=== PATIENT | female | born 1990 | race Caucasian/White ===

== ENCOUNTER 2021-04-04 13:49 | Emergency (ER) | payer BC ==
[~2021-04-04] VITALS: Ht 170.2 cm; Wt 94.3 kg
[2021-04-04] MEDS ORDERED: NACL 0.9% 1,000 ML IV ONE ×2 (14:00→14:45)
[2021-04-04 14:02] VITALS: BP_SYST 141
--- NOTE | 2021-04-04 14:02 | NUR ---
Pt came to ER with Fever for multiple days presents with temperature 100.4 no pain. Pt resting in gurney, tachycardic, awaiting
--- NOTE | 2021-04-04 14:02 | NUR ---
Patient to ER bed 8 to gown for evaluation. Side rails up.
--- NOTE | 2021-04-04 14:15 | NUR ---
SRINIVAS Rey at bedside examining patient.
[2021-04-04] MEDS ORDERED: cefTRIAXone 1 GM in D5W 50 ML IV ONE (14:30)
[2021-04-04 14:33] LABS: BILIRUBIN,URINE 1+ (NEGATIVE); BLOOD, URINE 2+ (NEGATIVE); CLARITY/URINE TURBID (CLEAR); COLOR,URINE YELLOW (YELLOW); GLUCOSE,URINE NEGATIVE (NEGATIVE); KETONES,URINE 1+ (NEGATIVE); LEUKOCYTE ESTERASE ,URINE 2+ (NEGATIVE); NITRITE, URINE POSITIVE (NEGATIVE); PROTEIN URINE 2+ (NEGATIVE)
[2021-04-04 14:38] LABS: HEMOGLOBIN 16.4 g/dL (12.0-16.0); RED CELL DISTRIBUTION WIDTH 13.3 % (9.0-15.0); WHITE BLOOD COUNT (AUTO) 5.5 K/uL (4.8-10.8)
[2021-04-04 14:42] LABS: HEMATOCRIT 48.1 % (36-48); MEAN CORPUSCULAR HEMOGLOBIN 29 pg (27-31); MEAN CORPUSCULAR HGB CONC 34 % (32-36); MEAN CORPUSCULAR VOLUME 85 fL (79.0-98.0); PLATELET COUNT (AUTO) 177 K/uL (130-430); RED BLOOD CELL COUNT(AUTO) 5.63 MIL/uL (4.2-6.2)
[2021-04-04] MEDS ORDERED: cefTRIAXone 1 GM VIAL ONE ×2 (14:42→14:43)
[2021-04-04 14:47] LABS: BACTERIA,URINE MANY /HPF (None Seen); CALCIUM 9.3 mg/dL (8.4-11.0); CREATININE 0.99 mg/dL (0.55-1.30); POTASSIUM 3.4 mmol/L (3.5-5.1)
[2021-04-04 14:49] LABS: INR 1.1 (0.8-1.2); PROTHROMBIN TIME 11.1 SECS (9.5-12.5)
[2021-04-04 14:58] LABS: ALBUMIN 3.9 g/dL (3.4-4.8); TOTAL BILIRUBIN 0.7 mg/dL (0.0-1.0)
[2021-04-04] MEDS ORDERED: cefdinir PO (14:58)
[2021-04-04] MEDS ORDERED: ONDA-8 TL (14:58)
[2021-04-04 15:02] LABS: BAND % (MANUAL) 4 % (0-6); BASOPHILS % (MANUAL) 0 % (0-2); EOSINOPHILS % (MANUAL) 0 % (0-7); LYMPHOCYTES % (MANUAL) 25 % (20-46); MONOCYTES % (MANUAL) 6 % (0-11)
[2021-04-04] MEDS ORDERED: ACETAMINOPHEN 325 MG TABLET PO ONE (15:15)
--- NOTE | 2021-04-04 15:37 | NUR ---
Pt resting in [facility] at this time, mother at bedside
[2021-04-04] MEDS ORDERED: IBUPROFEN 600 MG TABLET PO ONE (16:00)
--- NOTE | 2021-04-04 16:34 | NUR ---
pt resting in [facility] at this time no complaints
[2021-04-04 17:30] LABS: BILIRUBIN,URINE NEGATIVE (NEGATIVE); CLARITY/URINE CLEAR (CLEAR); COLOR,URINE YELLOW (YELLOW); GLUCOSE,URINE NEGATIVE (NEGATIVE); KETONES,URINE NEGATIVE (NEGATIVE); LEUKOCYTE ESTERASE ,URINE 1+ (NEGATIVE); NITRITE, URINE POSITIVE (NEGATIVE); PH,URINE 6.5 (5.0-8.0); PROTEIN URINE TRACE (NEGATIVE)
[2021-04-04 17:45] LABS: BLOOD, URINE TRACE (NEGATIVE)
[2021-04-04 17:46] LABS: BACTERIA,URINE MODERATE /HPF (None Seen)
[2021-04-04 17:47] LABS: MUCUS,URINE None Seen /LPF (None Seen)
[2021-04-04 18:21] VITALS: BP_SYST 137
--- NOTE | 2021-04-04 18:21 | NUR ---
Patient given written and verbal discharge instructions and verbalizes understanding. ER MD discussed with patient the results and treatment provided. Patient in stable condition. ID arm band removed. Rx of Cefdinir given. Patient educated on pain management and to follow up with PMD. Pain Scale 0/10. Opportunity for questions provided and answered. Medication side effect fact sheet provided.
--- NOTE | 2021-04-06 12:51 | NUR ---
Spoke with Dr Ayala regarding positive urine culture, stated no further action needed
== END 2021-04-04 16:34 | disposition home or self-care (01) ==
LOC: SED 13:49
DX: N39.0 Urinary tract infection, site not specified (principal); A41.89 Other specified sepsis; Z79.899 Other long term (current) drug therapy
CPT/HCPCS: 36415; 80053; 81000; 83605; 85007; 85027; 85610; 87040; 87086; 96361; 96365; 99284; J0696; J7030

== ENCOUNTER 2021-12-03 21:03 | Emergency (ER) | payer SELFPAY ==
[~2021-12-03] VITALS: Ht 170.2 cm; Wt 91.2 kg
[~2021-12-03 21:03] MED LIST: ONDA-8 TL; cefdinir PO
--- NOTE | 2021-12-03 21:03 | NUR ---
31 YR OLD AMBULATORY FEMALE WITH COPLAINT OF RIGHT SIDED FACIAL NUMBNESS AND OR TINGLING FOR MORE THAN TWO WEEKS. PT REPORTS FEELING A LITTLE STRESSED CONCERED ABOUT THE NUMBNESS. PT DENIES ANY CHEST PAIN OR DIZZYNESS. 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 PT OTHER AT THE BEDSIDE. WILL MONITOR NEEDED
--- NOTE | 2021-12-03 21:03 | NUR ---
Placed in room 6 . Placed on cardiac catheterization technician, blood pressure machine and pulse oximeter. To gown for exam. Side rails up. Report given to Concetta MIKE.
--- NOTE | 2021-12-03 21:04 | NUR ---
ER at bedside examining patient.
[2021-12-03 21:05] VITALS: BP_SYST 181
--- NOTE | 2021-12-03 21:36 | NUR ---
PT BLOOD PRESSURE ELVATED AT 172/110, AWARE. WILL MONITOR PT CLOSELY.
[2021-12-03 21:45] LABS: BASOPHILS # (AUTO) 0.1 K/uL (0.0-0.2); EOSINOPHILS # (AUTO) 0.2 K/uL (0.0-0.4); EOSINOPHILS % (AUTO) 2.2 % (0.0-4.0); HEMATOCRIT 45.2 % (36-48); HEMOGLOBIN 15.2 g/dL (12.0-16.0); LYMPHOCYTES # (AUTO) 3.6 K/uL (1.0-5.5); LYMPHOCYTES % (AUTO) 37.6 % (20.5-51.5); MEAN CORPUSCULAR HEMOGLOBIN 29 pg (27-31); MEAN CORPUSCULAR HGB CONC 34 % (32-36); MEAN CORPUSCULAR VOLUME 87 fL (79.0-98.0); MONOCYTES # (AUTO) 0.7 K/uL (0.0-1.0); MONOCYTES % (AUTO) 6.9 % (1.7-9.3); NEUTROPHILS % (AUTO) 52.3 % (40.0-70.0); PLATELET COUNT (AUTO) 339 K/uL (130-430); RED BLOOD CELL COUNT(AUTO) 5.21 MIL/uL (4.2-6.2); RED CELL DISTRIBUTION WIDTH 12.8 % (9.0-15.0); WHITE BLOOD COUNT (AUTO) 9.6 K/uL (4.8-10.8)
[2021-12-03] MEDS ORDERED: cloNIDine HCL 0.1 MG TABLET PO ONE (21:45)
[2021-12-03 22:05] LABS: CALCIUM 9.1 mg/dL (8.4-11.0); CREATININE 0.77 mg/dL (0.55-1.30); POTASSIUM 3.5 mmol/L (3.5-5.1); TOTAL BILIRUBIN 0.5 mg/dL (0.0-1.0)
[2021-12-03 22:06] LABS: ALBUMIN 4.4 g/dL (3.4-4.8)
--- NOTE | 2021-12-03 22:15 | NUR ---
PT OFF UNIT TO CT SCAN
[2021-12-03] MEDS ORDERED: AMLO5TAB4 PO (23:17)
--- NOTE | 2021-12-03 23:38 | NUR ---
PROVIDED WITH DISCHARGE INSTRUCTIONS AND PRESCRIPTION. PT ENCOURAGED TO FOLLOW UP WITH PRIMARY CARE PHYSICIAN WITHIN 3 TO 5 DAYS. ALL QUESTIONS ANSWERED. PT VERBALIZED UNDERSTANDING. PT DISCHARGED WITH ALL BELONGINGS, ACCOMPANIED BY MOTHER.
[2021-12-03 23:40] VITALS: BP_SYST 174
== END 2021-12-03 23:41 | disposition home or self-care (01) ==
LOC: SED 21:03
DX: R20.2 Paresthesia of skin (principal); R51.9 Headache, unspecified; I10 Essential (primary) hypertension; Z79.899 Other long term (current) drug therapy
CPT/HCPCS: 36415; 70450-TC; 71045; 76376; 80053; 84484; 84703; 85025; 93005; 99285